=== PATIENT | male | born 1975 | race Two or more races ===

== ENCOUNTER 2020-10-22 18:14 | Emergency (ER) | payer OTHER ==
[~2020-10-22] VITALS: Ht 175.3 cm; Wt 90.7 kg
[2020-10-22 23:58] VITALS: BP 156/111
== END 2020-10-23 00:36 | disposition home or self-care (01) ==
LOC: ER 18:15
DX: S53.402A Unspecified sprain of left elbow, initial encounter (principal); W18.39XA Other fall on same level, initial encounter; Y93.89 Activity, other specified; Y92.89 Other specified places as the place of occurrence of the external cause; Y99.8 Other external cause status
CPT/HCPCS: 73080

== ENCOUNTER 2020-12-11 11:38 | Emergency (ER) | payer OTHER ==
[~2020-12-11] VITALS: Ht 162.6 cm; Wt 49.9 kg
[2020-12-11 16:24] VITALS: BP 146/104
== END 2020-12-11 17:07 | disposition home or self-care (01) ==
LOC: ER 11:38
DX: S46.211A Strain of muscle, fascia and tendon of other parts of biceps, right arm, initial encounter (principal); X50.1XXA Overexertion from prolonged static or awkward postures, initial encounter; Y93.89 Activity, other specified; Y92.89 Other specified places as the place of occurrence of the external cause; Y99.8 Other external cause status
CPT/HCPCS: 73200